=== PATIENT | male | born 1955 | race Caucasian/White ===

== ENCOUNTER 2022-01-17 15:40 | Emergency (ER) | payer MEDICARE ==
[~2022-01-17] VITALS: Ht 182.9 cm; Wt 83.9 kg
[2022-01-17 16:36] LABS: BASOPHILS ABSOLUTE AUTO 0.02 K/mm3 (0.00-0.23); BASOPHILS PERCENT AUTO 0 % (0-2); EOSINOPHILS ABSOLUTE AUTO 0.11 K/mm3 (0.00-0.68); EOSINOPHILS PERCENT AUTO 2 % (0-6); Hematocrit 40.1 % (37.0-53.0); Hemoglobin 13.7 g/dL (13.5-17.5); IMMATURE GRAN ABSOLUTE AUTO 0.01 K/mm3 (0.00-0.10); IMMATURE GRAN PERCENT AUTO 0 % (0-1); LYMPHOCYTES ABSOLUTE AUTO 2.55 K/mm3 (0.84-5.20); LYMPHOCYTES PERCENT AUTO 43 % (21-46); MONOCYTES ABSOLUTE AUTO 0.46 K/mm3 (0.16-1.47); MONOCYTES PERCENT AUTO 8 % (4-13); Mean Corpuscular HGB 31.6 pg (26.0-34.0); Mean Corpuscular HGB Conc 34.2 g/dL (31.5-36.5); Mean Corpuscular Volume 92 fL (80-100); Mean Platelet Volume 10.4 fL (9.1-12.4); NEUTROPHILS ABSOLUTE AUTO 2.81 K/mm3 (1.96-9.15); NEUTROPHILS PERCENT AUTO 47 % (41-73); Platelet Count 214 K/mm3 (150-400); RDW Coefficient Variation 12.4 % (11.7-14.2); RDW Standard Deviation 42.3 fL (35.1-46.3); Red Blood Cell Count 4.34 M/mm3 (4.30-5.90); White Blood Cell Count 5.96 K/mm3 (4.00-11.30)
[2022-01-17 16:56] LABS: Alanine Aminotransfer (ALT/SGP 108 U/L (12-78); Albumin, Blood 3.5 g/dL (3.4-5.0); Albumin/Globulin Ratio 0.9 (0.8-1.8); Alk Phos 108 U/L (50-136); Anion Gap 6 mmol/L (6-16); Aspartate Aminotrans (AST/SGOT 86 U/L (12-37); Bilirubin, Total 0.6 mg/dL (0.1-1.0); Blood Urea Nitrogen 15 mg/dL (8-24); CO2, Blood 28 mmol/L (21-32); Calcium, Blood 8.8 mg/dL (8.5-10.1); Chloride, Blood 107 mmol/L (98-108); Globulin, Blood 4.1 g/dL (2.2-4.0); Glomerular Filtration Rate >60 (60-); Glucose, Blood 99 mg/dL (70-99); Potassium, Blood 3.6 mmol/L (3.5-5.5); Sodium, Blood 141 mmol/L (136-145); Total Protein, Blood 7.6 g/dL (6.4-8.2)
[2022-01-17] MEDS ORDERED: OXYC5 PO (17:34)
[2022-01-17] MEDS ORDERED: CYCL10 PO (17:35)
[2022-01-17] MEDS ORDERED: TRAM50 PO (17:35)
[2022-01-17] MEDS ORDERED: SUMA25 PO (17:36)
[2022-01-17] MEDS ORDERED: BENZ100A PO (17:39)
== END 2022-01-17 17:51 | disposition home or self-care (01) ==
LOC: ER 15:40
PROVIDERS: Physician Assistant
DX: J40 Bronchitis, not specified as acute or chronic (principal); G62.9 Polyneuropathy, unspecified; Z87.891 Personal history of nicotine dependence
CPT/HCPCS: 71046; 80053; 85025

== ENCOUNTER → 2023-06-07 | Outpatient (CLI) | payer MEDICARE, OTHER ==
[~2023-06-07] MED LIST: BENZ100A PO; CYCL10 PO; OXYC5 PO; SUMA25 PO; TRAM50 PO
[2023-06-11 09:07] LABS: TRAMADOL 1500 (.)
== END ==
LOC: LAB SHORT 17:13 → LAB 17:13
PROVIDERS: Family Medicine
DX: Z51.81 Encounter for therapeutic drug level monitoring (principal); Z79.891 Long term (current) use of opiate analgesic
CPT/HCPCS: G0480

== ENCOUNTER 2023-09-30 16:20 | Emergency (ER) | payer MEDICARE, OTHER ==
[~2023-09-30] VITALS: Ht 182.9 cm; Wt 74.8 kg
[2023-09-30 19:19] VITALS: BP 187/119
[2023-09-30] MEDS ORDERED: CEPH500 PO (22:09)
[2023-10-01] MEDS ORDERED: CEPH500 PO (15:17)
== END 2023-09-30 22:18 | disposition home or self-care (01) ==
LOC: ER 16:20
DX: S62.630B Displaced fracture of distal phalanx of right index finger, initial encounter for open fracture (principal); S61.111A Laceration without foreign body of right thumb with damage to nail, initial encounter; S61.313A Laceration without foreign body of left middle finger with damage to nail, initial encounter; W31.2XXA Contact with powered woodworking and forming machines, initial encounter; Z88.2 Allergy status to sulfonamides; Z87.891 Personal history of nicotine dependence
CPT/HCPCS: 12002; 73120; 82947; 96374-59; 99283-25; J3010

== ENCOUNTER 2023-10-02 16:03 | Emergency (ER) | payer MEDICARE, OTHER ==
[~2023-10-02] VITALS: Ht 182.9 cm; Wt 74.8 kg
[~2023-10-02 16:03] MED LIST changes: +CEPH500 PO
[2023-10-02 16:13] VITALS: BP 161/90
== END 2023-10-02 17:24 | disposition home or self-care (01) ==
LOC: ER 16:03
DX: S61.210A Laceration without foreign body of right index finger without damage to nail, initial encounter (principal); S61.412A Laceration without foreign body of left hand, initial encounter; S61.011A Laceration without foreign body of right thumb without damage to nail, initial encounter; W31.2XXA Contact with powered woodworking and forming machines, initial encounter; Z88.2 Allergy status to sulfonamides; Z87.891 Personal history of nicotine dependence
CPT/HCPCS: 99282

== ENCOUNTER 2023-10-12 23:57 | Emergency (ER) | payer MEDICARE, OTHER ==
[~2023-10-12] VITALS: Ht 182.9 cm; Wt 74.8 kg
[2023-10-13 05:00] VITALS: BP 168/106
[2023-10-13] MEDS ORDERED: TRAM50 PO (05:03)
[2023-10-13] MEDS ORDERED: CYCLOBENZAPRINE5 MG PO (05:04)
== END 2023-10-13 05:32 | disposition home or self-care (01) ==
LOC: ER 23:57
DX: S61.210D Laceration without foreign body of right index finger without damage to nail, subsequent encounter (principal); W31.2XXD Contact with powered woodworking and forming machines, subsequent encounter; Z87.891 Personal history of nicotine dependence
CPT/HCPCS: 99282

== ENCOUNTER → 2024-03-15 | Outpatient (CLI) | payer MEDICARE, OTHER ==
[~2024-03-15] MED LIST changes: +CYCLOBENZAPRINE5 MG PO
== END | disposition home or self-care (01) ==
LOC: LAB SHORT 17:40 → LAB 17:40
DX: R35.0 Frequency of micturition (principal)
CPT/HCPCS: 87086

== ENCOUNTER → 2024-11-16 | Outpatient (CLI) | payer MEDICARE, OTHER | LOC: LAB SHORT 12:00 → LAB 12:00 | DX: B35.3 Tinea pedis (principal) | CPT/HCPCS: 87102; 87106 ==